=== PATIENT | male | born 1930 | race Caucasian/White ===

== ENCOUNTER → 2016-04-29 | Outpatient (CLI) | payer OTHER ==
[~2016-04-29] MED LIST: ASPIR 8181 M1 PO; ASPIRIN81 M1 PO; BENICAR20 MG PO; BENICAR40 MG PO; BENICAR5 MG PO; COUMADIN5 MG PO; CRESTOR20 MG PO; Coumadin,Jantoven PO; LESCOL20 MG PO; LEVOTHROID100 MCG PO; LEVOTHROID50 MCG PO; PERCOCET 5/31 TABLET PO; PLAVIX75 MG PO; SYNTHROID100 MCG PO
== END | disposition home or self-care (01) ==
LOC: NUC 10:48
DX: R10.11 Right upper quadrant pain (principal)
CPT/HCPCS: 78227; A9537; J2805